=== PATIENT | female | born 1965 | race Caucasian/White ===

== ENCOUNTER → 2022-10-05 09:53 | Outpatient (BNVA) | payer OTHER, SELFPAY | PROVIDERS: Visit Provider Nurse Practitioner Family | DX: J02.9 Acute pharyngitis, unspecified (principal); R68.89 Other general symptoms and signs | CPT/HCPCS: 87071; 87400; 87880 ==

== ENCOUNTER → 2025-05-17 11:06 | Outpatient (BNVA) | payer BC, SELFPAY | PROVIDERS: Visit Provider Nurse Practitioner | DX: R53.1 Weakness (principal) | CPT/HCPCS: 80053; 85025 ==